=== PATIENT | female | born 1955 | race Caucasian/White ===

== ENCOUNTER 2018-01-19 06:48 | Day surgery (SDC) | payer MEDICARE, OTHER ==
[~2018-01-19] VITALS: Ht 167.6 cm; Wt 81.8 kg
[2018-01-19] MEDS ORDERED: normal saline 1000ml 1,000 ML IV SCH ×2 (07:20→10:20)
[2018-01-19 07:27] VITALS: BP 99/62
[2018-01-19] MEDS ORDERED: ESTR1TAB23 PO (07:32)
[2018-01-19] MEDS ORDERED: CITA20TA19 PO (07:32)
[2018-01-19] MEDS ORDERED: SYN0.088T PO (07:32)
[2018-01-19] MEDS ORDERED: DOCU-148 PO (07:32)
[2018-01-19] MEDS ORDERED: MULT-955 PO (07:32)
[2018-01-19] MEDS ORDERED: ACYC-202 PO (07:32)
[2018-01-19] MEDS ORDERED: CHOL10002 PO (07:32)
[2018-01-19] MEDS ORDERED: ACYC5CRE2 TP (07:32)
[2018-01-19] MEDS ORDERED: FLUT16SP2 BOTHNARES (07:32)
[2018-01-19 08:00] LABS: BASOPHILS % (AUTO) 1.1 % (0-1); EOSINOPHILS # (AUTO) 0.1 X10'3 (0-0.9); HEMATOCRIT 30.2 % (35.0-45.0); HEMOGLOBIN 9.7 g/dl (12.0-16.0); LYMPHOCYTES # (AUTO) 0.8 X10'3 (1.1-4.8); LYMPHOCYTES % (AUTO) 26.1 % (21-51); MEAN CORPUSCULAR HEMOGLOBIN 26.9 PG (27.0-31.0); MEAN CORPUSCULAR HGB CONC 32.2 % (33.0-36.5); MEAN CORPUSCULAR VOLUME 83.8 FL (78-98); MEAN PLATELET VOLUME 7.7 FL (7.4-10.4); MONOCYTES # (AUTO) 0.4 X10'3 (0-0.9); MONOCYTES % (AUTO) 11.6 % (2-12); NEUTROPHILS # (AUTO) 1.9 X10'3 (1.8-7.7); NEUTROPHILS % (AUTO) 58.2 % (42-75); PLATELET COUNT 300 X10'3 (140-440); RED CELL DISTRIBUTION WIDTH 17.7 % (11.5-14.5); WHITE BLOOD COUNT 3.2 X10'3 (4.5-11.0)
[2018-01-19] MEDS ORDERED: fentaNYL/PF 50MCG/1 ML 2ML syringe IV PRN (08:30)
[2018-01-19] MEDS ORDERED: midazolam 2 mg/2 ml injection IV PRN (08:30)
[2018-01-19] MEDS ORDERED: midazolam 2 mg/2 ml injection ONE (08:39)
[2018-01-19] MEDS ORDERED: fentaNYL/PF 50MCG/1 ML 2ML syringe ONE (08:40)
[2018-01-19] MEDS ORDERED: LIDOcaine 1%/PF 5ML 10 MG/ML VIAL ONE (08:40)
[2018-01-19] MEDS ORDERED: heparin sodium, porcine/PF 100unit/ml 5ML syringe ONE (08:41)
[2018-01-19 10:06] VITALS: BP 111/67
[2018-01-19 10:15] VITALS: BP 103/61
[2018-01-19 10:30] VITALS: BP 105/60
[2018-01-19 10:45] VITALS: BP 104/58
[2018-01-19 10:57] VITALS: BP 103/55
== END 2018-01-19 11:15 | disposition home or self-care (01) ==
LOC: SSTAY O 06:48
PROVIDERS: ATTEND Radiology Diagnostic Radiology
DX: C72.9 Malignant neoplasm of central nervous system, unspecified (principal); I35.1 Nonrheumatic aortic (valve) insufficiency; F32.9 Major depressive disorder, single episode, unspecified; E66.9 Obesity, unspecified; E03.9 Hypothyroidism, unspecified; Z98.84 Bariatric surgery status; Z98.42 Cataract extraction status, left eye; Z88.6 Allergy status to analgesic agent; Z88.1 Allergy status to other antibiotic agents; Z88.5 Allergy status to narcotic agent; Z91.040 Latex allergy status; Z91.048 Other nonmedicinal substance allergy status; Z87.891 Personal history of nicotine dependence; Z98.82 Breast implant status; Z90.710 Acquired absence of both cervix and uterus; Z68.29 Body mass index [BMI] 29.0-29.9, adult; Z88.8 Allergy status to other drugs, medicaments and biological substances; Z79.899 Other long term (current) drug therapy; Z98.890 Other specified postprocedural states
CPT/HCPCS: 36415; 36561; 76937; 77001; 85025; 99152; 99153; A6219; C1788; C1894; J1642; J2001; J2250; J3010; J7030; A4620

== ENCOUNTER 2018-05-25 23:53 | Emergency (ER) | payer MEDICARE, OTHER ==
[~2018-05-25] VITALS: Ht 167.6 cm; Wt 185.0 kg
[~2018-05-25 23:53] MED LIST: ACYC-202 PO; ACYC5CRE2 TP; CHOL10002 PO; CITA20TA19 PO; DOCU-148 PO; ESTR1TAB23 PO; FLUT16SP2 BOTHNARES; MULT-955 PO; SYN0.088T PO
[2018-05-26] MEDS ORDERED: normal saline 1000ML IV soln IVB ONE (00:20)
[2018-05-26 00:40] LABS: ALANINE AMINOTRANSFERASE 23 U/L (12-78); ALBUMIN 3.5 G/DL (3.4-5.0); ALBUMIN/GLOBULIN RATIO 1.1 (1.1-1.5); ALKALINE PHOSPHATASE 104 IU/L (46-116); ANION GAP 14 (8-16); ASPARTATE AMINO TRANSFERASE 15 U/L (10-37); BILIRUBIN,TOTAL 0.3 MG/DL (0.1-1.0); BLOOD UREA NITROGEN 17 MG/DL (7-18); BUN/CREATININE RATIO 18.1 (6.6-38.0); CALCIUM 9.2 MG/DL (8.5-10.1); CHLORIDE 107 MMOL/L (99-107); CREATININE 0.94 MG/DL (0.40-0.90); GLUCOSE 120 MG/DL (70-104); POTASSIUM 3.5 MMOL/L (3.5-5.1); SODIUM 142 MMOL/L (135-145); TOTAL CARBON DIOXIDE 21.5 MMOL/L (24-32); TOTAL PROTEIN 6.7 G/DL (6.4-8.2); eGFR 60 ML/MIN
[2018-05-26 00:49] LABS: BASOPHILS % (AUTO) 0.3 % (0-1); EOSINOPHILS # (AUTO) 0.1 X10'3 (0-0.9); EOSINOPHILS % (AUTO) 1.3 % (0-6); HEMATOCRIT 33.1 % (35.0-45.0); HEMOGLOBIN 10.2 g/dl (12.0-16.0); LYMPHOCYTES # (AUTO) 0.8 X10'3 (1.1-4.8); LYMPHOCYTES % (AUTO) 9.2 % (21-51); MEAN CORPUSCULAR HEMOGLOBIN 24.5 PG (27.0-31.0); MEAN CORPUSCULAR HGB CONC 30.9 % (33.0-36.5); MEAN CORPUSCULAR VOLUME 79.2 FL (78-98); MEAN PLATELET VOLUME 8.9 FL (7.4-10.4); MONOCYTES # (AUTO) 0.6 X10'3 (0-0.9); MONOCYTES % (AUTO) 6.3 % (2-12); NEUTROPHILS # (AUTO) 7.4 X10'3 (1.8-7.7); NEUTROPHILS % (AUTO) 82.9 % (42-75); PLATELET COUNT 325 X10'3 (140-440); RED BLOOD COUNT 4.18 X10'6 (4.20-5.60); RED CELL DISTRIBUTION WIDTH 19.9 % (11.5-14.5); WHITE BLOOD COUNT 8.9 X10'3 (4.5-11.0)
[2018-05-26] MEDS ORDERED: potassium Cl 20 mEq SR tablet PO STA (01:05)
[2018-05-26 01:15] LABS: ACANTHOCYTES FEW; ANISOCYTOSIS 2+; ELLIPTOCYTES FEW; PLATELET ESTIMATE NORMAL; POLYCHROMASIA FEW
[2018-05-26 01:16] LABS: POIKILOCYTOSIS 1+
[2018-05-26 02:03] LABS: CLARITY,URINE SLIGHTLY CLOUDY (Clear); COLOR,URINE YELLOW (Yellow); GLUCOSE, URINE NEGATIVE (Neg); KETONES,URINE 40 mg/dl (Neg); LEUKOCYTE ESTERASE ,URINE NEGATIVE (Neg); NITRITES, URINE NEGATIVE (Neg); OCCULT BLOOD,URINE NEGATIVE (Neg); PH,URINE 7.5 (4.8-8.0); PROTEIN,URINE TRACE mg/dl (Neg); UROBILINOGEN,URINE 0.2 E.U/dL (0.2-1.0)
[2018-05-26 02:36] LABS: UA COLLECTION TYPE VOIDED
[2018-05-26 02:38] LABS: BACTERIA,URINE 4+ /HPF (Neg); MUCUS STRANDS MANY /LPF (Neg); RBC,URINE 0-2 /HPF (0-2); SQUAMOUS EPITHELIAL CELL,UR MANY /LPF (FEW); WBC,URINE 0-4 /HPF (0-4)
[2018-05-26 03:09] VITALS: BP 117/70
== END 2018-05-26 03:13 | disposition home or self-care (01) ==
LOC: ER 23:54
DX: S09.90XA Unspecified injury of head, initial encounter (principal); E86.0 Dehydration; I95.9 Hypotension, unspecified; Z90.49 Acquired absence of other specified parts of digestive tract; Z90.710 Acquired absence of both cervix and uterus; Z88.1 Allergy status to other antibiotic agents; Z88.5 Allergy status to narcotic agent; Z91.040 Latex allergy status; Z88.2 Allergy status to sulfonamides; Z79.2 Long term (current) use of antibiotics; Z79.899 Other long term (current) drug therapy; W01.190A Fall on same level from slipping, tripping and stumbling with subsequent striking against furniture, initial encounter; Y93.01 Activity, walking, marching and hiking; Y92.89 Other specified places as the place of occurrence of the external cause; Y99.8 Other external cause status
CPT/HCPCS: 36415; 70450; 80053; 81001; 85025; 96360; 96361; 99285; J7030